=== PATIENT | female | born 1960 | race Caucasian/White ===

== ENCOUNTER → 2019-12-27 | Outpatient (CLI) | payer OTHER ==
[~2019-12-27] MED LIST: ATENOLOL 25 MG25 M1 PO; AUGMENTIN 875875 MG PO; BENADRYL25 MG PO; BUPRENORPHINE HC2 MG SL; CELEXA40 MG PO; COLACE100 MG PO; FLEXERIL PO; GLUCOPHAGE500 MG PO; HYDROCODON-ACE1 EAC5 PO; LISINOPRIL20 MG PO; NEURONTIN800 MG PO; NORCO 10-325 T1 EACH PO; OXYCODONE HCL 55 MG PO; OXYCONTIN CR 1010 M1 PO; PHENERGAN 25 MG25 M1 PO; PRAVACHOL40 MG PO; PRILOSEC 10MG C10 M1 PO; ROBAXIN 750 MG750 M1 PO; ROBITUSSIN100 MG/53; XANAX 0.5 MG0.5 MG PO; ZANAFLEX4 M1 PO; ZETIA10 MG PO; [UNRECOGNIZED DRUG - OTHER]; [UNRECOGNIZED DRUG - OTHER]
== END ==
LOC: LAB 14:26
PROVIDERS: ATTEND Anesthesiology
DX: Z01.812 Encounter for preprocedural laboratory examination (principal); Z20.828 Contact with and (suspected) exposure to other viral communicable diseases